=== PATIENT | male | born 1970 | race Caucasian/White ===

== ENCOUNTER 2024-05-30 13:49 | Emergency (ER) | payer BC ==
[~2024-05-30 13:49] MED LIST: Iopamidol 300 61% 100 ML VIAL FS ONE
== END 2024-05-30 16:35 | disposition home or self-care (01) ==
LOC: CSHERS 13:49
DX: K11.20 Sialoadenitis, unspecified (principal); E03.9 Hypothyroidism, unspecified; F17.290 Nicotine dependence, other tobacco product, uncomplicated; Z79.890 Hormone replacement therapy
CPT/HCPCS: 70491; Q9967